=== PATIENT | male | born 1950 | race Caucasian/White ===

== ENCOUNTER 2019-11-04 18:20 | Emergency (ER) | payer MEDICARE, OTHER ==
[~2019-11-04] VITALS: Ht 175.3 cm; Wt 99.9 kg
[2019-11-04 18:28] VITALS: BP 166/108
--- NOTE | 2019-11-04 18:47 | NUR ---
PROJECT [employer]INE[employer]: PT AMBULATORY TO ROOM FROM LOBBY
--- NOTE | 2019-11-04 19:18 | NUR ---
PT TO IMAGING AT THIS TIME. URINE SAMPLE COLLECTED AND SENT.
[2019-11-04 19:21] LABS: BASOPHILS # (AUTO) 0.05 x10^3/uL (0-0.1); BASOPHILS % (AUTO) 1 % (0-1); EOSINOPHILS # (AUTO) 0.17 x10^3/uL (0-0.4); EOSINOPHILS % (AUTO) 2 % (1-7); LYMPHOCYTES # (AUTO) 1.69 x10^3/uL (1-3.4); LYMPHOCYTES % (AUTO) 20 % (22-44); MD NO; MEAN CORPUSCULAR HEMOGLOBIN 30.2 pg (27.5-34.5); MEAN CORPUSCULAR HGB CONC 34.5 g/dL (33.2-36.2); MEAN CORPUSCULAR VOLUME 87.6 fL (81-97); MEAN PLATELET VOLUME 9.9 fL (7.4-10.4); MONOCYTES # (AUTO) 0.65 x10^3/uL (0.2-0.8); MONOCYTES % (AUTO) 8 % (2-9); NEUTROPHILS # (AUTO) 5.75 x10^3/uL (1.8-6.8); NEUTROPHILS % (AUTO) 69 % (42-75); PLATELET COUNT 153 x10^3/uL (130-400); RED BLOOD COUNT 4.49 x10^6/uL (4.38-5.82); RED CELL DISTRIBUTION WIDTH 14.3 % (9.4-14.8)
[2019-11-04 19:31] LABS: INTERNATIONAL NORMALIZED RATIO 2.51 (0.93-1.1); PROTHROMBIN TIME 26.9 Seconds (9.6-11.5)
[2019-11-04 19:32] LABS: ALANINE AMINOTRANSFERASE 35 U/L (12-78); ALBUMIN 3.7 g/dL (3.4-5.0); ANION GAP 6 mmol/L (5-15); CALCIUM 9.3 mg/dL (8.5-10.1); CHLORIDE 103 mmol/L (98-107); CREATININE 1.48 mg/dL (0.7-1.3)
[2019-11-04 19:34] LABS: ALKALINE PHOSPHATASE 52 U/L (45-117); BILIRUBIN,TOTAL 0.8 mg/dL (0.2-1.0); TOTAL PROTEIN 7.3 g/dL (6.4-8.2)
[2019-11-04 19:40] LABS: MICROSCOPIC INDICATED
--- NOTE | 2019-11-04 19:51 | NUR ---
PT RETURNED FROM IMAGING. URINATED IN URINAL, BLADDER SCAN IMMEDIATELY AFTER SHOWS 70ML OF URINE REMAINING. PT DENIES ANY NEEDS OR CONCERNS, CALL LIGHT IN REACH.
== END 2019-11-04 21:17 | disposition home or self-care (01) ==
LOC: ED 20:21
DX: R31.0 Gross hematuria (principal); R05 Cough
CPT/HCPCS: 36415; 74018; 76770; 80053; 81001; 85025; 85610; 87086; 87147; 99285

== ENCOUNTER 2020-11-12 09:48 | Inpatient (IN) | payer MEDICARE ==
[~2020-11-12] VITALS: Ht 177.8 cm; Wt 81.7 kg
[~2020-11-12 09:48] MED LIST: ATOR-2 PO; DIGO125T10 PO; DORZ10DR28 EACHEYE; DOXA8TAB63 PO; EMPA10TA PO; EZET10TA70 PO; HYDR25TA6 PO; INSU100I18 SC; INSU100V8 SQ; LATA7.5D EACHEYE; LISI5TAB7 PO; METO25TA91 PO; OXYB5TAB10 PO; WARF-36 PO
--- NOTE | 2020-11-12 10:09 | NUR ---
BIB EMS FROM HOME PT WAS FOUND OUTSIDE OF HIS HOUSE PER NEIGHBORS "LOOKING CONFUSED". PT WAS FOUND TO BE AOX2 [facility] BY [facility]. PT WAS FOUND TO BE IN A FIB W/ RVR TAKES DIGOXIN, METOPROLOL AND COUMADIN. NO TRAUMA NOTED TO BODY/HEAD. PTS BS 176, HR 110-170, 95% RA. PT RESTING ON GURNEY. REMAINS AOX2 FOR THIS RN. PT BELIEVES IT IS 1969 AND THE PRESIDENT IS "MYERS". IS AWARE HE IS IN [place], [place] AT [facility] "I JUST DON'T FEEL GOOD". MONITORS APPLIED. HR 125-151 IN A FIB HAS HX A FIB. ALL OTHER VSS. WARM BLANKET REFUSED BY PT. CALL LIGHT IN REACH.
--- NOTE | 2020-11-12 10:20 | NUR ---
ERP DR. MARROQUIN AT BEDSIDE FOR EVAL.
[2020-11-12] MEDS ORDERED: DILTIAZEM 5 MG/ML, 5ML ONE (10:25)
[2020-11-12] MEDS ORDERED: DILTIAZEM 5 MG/ML, 5ML IV ONE (10:30)
[2020-11-12] MEDS ORDERED: SODIUM CHLORIDE FLUSH 10ML SYR IVF ONE (10:30)
[2020-11-12] MEDS ORDERED: SODIUM CHLORIDE 0.9% 1,000ML IVBOLUS ONE (10:30)
--- NOTE | 2020-11-12 10:30 | NUR ---
PT AWARE OF NEED FOR UA SAMPLE. URINAL LEFT AT BEDSIDE.
[2020-11-12 10:55] LABS: BASOPHILS % (AUTO) 0 % (0-1); EOSINOPHILS % (AUTO) 0 % (1-7); LYMPHOCYTES % (AUTO) 9 % (22-44); MEAN CORPUSCULAR HEMOGLOBIN 28.3 pg (27.5-34.5); MEAN CORPUSCULAR HGB CONC 33.9 g/dL (33.2-36.2); MEAN PLATELET VOLUME 8.7 fL (7.4-10.4); MONOCYTES % (AUTO) 7 % (2-9); NEUTROPHILS % (AUTO) 83 % (42-75); PLATELET COUNT 183 x10^3/uL (130-400); RED BLOOD COUNT 5.92 x10^6/uL (4.38-5.82); RED CELL DISTRIBUTION WIDTH 17.3 % (9.4-14.8)
[2020-11-12 11:02] LABS: ALANINE AMINOTRANSFERASE 20 U/L (12-78); ALBUMIN 3.7 g/dL (3.4-5.0); ANION GAP 11 mmol/L (5-15); CALCIUM 9.2 mg/dL (8.5-10.1); CHLORIDE 107 mmol/L (98-107); CREATININE 1.39 mg/dL (0.7-1.3)
[2020-11-12 11:06] LABS: INTERNATIONAL NORMALIZED RATIO 1.22 (0.93-1.1); PROTHROMBIN TIME 12.9 Seconds (9.6-11.5)
[2020-11-12 11:07] LABS: ALKALINE PHOSPHATASE 60 U/L (45-117); BILIRUBIN,TOTAL 2.6 mg/dL (0.2-1.0); TOTAL PROTEIN 7.9 g/dL (6.4-8.2); TROPONIN I < 0.015 ng/mL (0.000-0.045)
--- NOTE | 2020-11-12 11:17 | NUR ---
PT RESTING ON GURNEY. NADN. HR REMAINS ELEVATED. ERP DR. MARROQUIN MADE AWARE. AWAITING NEW ORDERS.
[2020-11-12 11:28] LABS: MICROSCOPIC AUTO
[2020-11-12] MEDS ORDERED: DILTIAZEM 5 MG/ML, 5ML IVPush ONE (11:30)
--- NOTE | 2020-11-12 11:31 | NUR ---
PT CHART REVIEWED AND PLACED FOR RECHECK.
--- NOTE | 2020-11-12 11:36 | NUR ---
PT HR 77-84 AT THIS TIME.
[2020-11-12] MEDS ORDERED: CEFTRIAXONE 1,000 MG in DEXTROSE 5% 50 ML IVPB ONE (12:00)
--- NOTE | 2020-11-12 12:32 | NUR ---
PT RESTING ON JUDITH. IVELISSE. JUANS. PT AWARE OF ADMISSION AND IS AGREEABLE.
--- NOTE | 2020-11-12 13:16 | NUR ---
REPORT GIVEN TO NADIR COSTELLO RN. ALL QUESTIONS ANSWERED. AWAITING PT TRANSPORT.
[2020-11-12] MEDS ORDERED: SODIUM CHLORIDE 0.9% 1,000 ML IV SCH (13:30)
[2020-11-12] MEDS ORDERED: ACETAMINOPHEN 325 MG TABLET PO PRN (13:30)
[2020-11-12] MEDS ORDERED: ONDANSETRON 2MG/ML, 2ML IVPush PRN (13:30)
[2020-11-12] MEDS ORDERED: ONDANSETRON ODT 4 MG PO PRN (13:30)
[2020-11-12] MEDS ORDERED: MELATONIN 5 MG TABLET PO PRN (13:30)
[2020-11-12] MEDS ORDERED: ENALAPRILAT 1.25 MG/ML, 2ML IVPush PRN (13:30)
[2020-11-12] MEDS ORDERED: DILTIAZEM 5 MG/ML, 5ML IVPush PRN (13:30)
[2020-11-12 13:33] VITALS: BP 168/72
[2020-11-12] MEDS: OXYBUTYNIN CHLORIDE 5 MG TABLET PO SCH ×2 (17:01→20:58)
[2020-11-12] MEDS ORDERED: WARFARIN 7.5 MG TABLET PO-COUM ONE (18:00)
[2020-11-12 18:53] VITALS: BP 124/66
[2020-11-12] MEDS: ATORVASTATIN 80 MG TABLET PO SCH (20:58)
[2020-11-13 01:35] VITALS: BP 148/88
[2020-11-13 05:06] LABS: BASOPHILS % (AUTO) 1 % (0-1); EOSINOPHILS % (AUTO) 1 % (1-7); LYMPHOCYTES % (AUTO) 16 % (22-44); MEAN CORPUSCULAR HEMOGLOBIN 28.4 pg (27.5-34.5); MEAN CORPUSCULAR HGB CONC 34.3 g/dL (33.2-36.2); MEAN PLATELET VOLUME 8.6 fL (7.4-10.4); MONOCYTES % (AUTO) 11 % (2-9); NEUTROPHILS % (AUTO) 72 % (42-75); PLATELET COUNT 155 x10^3/uL (130-400); RED BLOOD COUNT 5.25 x10^6/uL (4.38-5.82); RED CELL DISTRIBUTION WIDTH 17.6 % (9.4-14.8)
[2020-11-13 05:22] LABS: CHLORIDE 107 mmol/L (98-107)
[2020-11-13 05:27] LABS: CALCIUM 8.9 mg/dL (8.5-10.1); CREATININE 1.39 mg/dL (0.7-1.3)
[2020-11-13 05:29] LABS: ANION GAP 10 mmol/L (5-15)
[2020-11-13] MEDS: METOPROLOL SUCCINATE 25 MG TAB.ER.24H PO SCH (05:57)
[2020-11-13 05:58] VITALS: BP 162/76
[2020-11-13 07:08] VITALS: BP 138/84
[2020-11-13] MEDS ORDERED: DIGOXIN 0.125 MG TABLET PO SCH (09:00)
[2020-11-13] MEDS: DIGOXIN 0.125 MG TABLET PO SCH (09:05)
[2020-11-13] MEDS: DOXAZOSIN 2MG TABLET PO SCH (09:06)
[2020-11-13] MEDS: OXYBUTYNIN CHLORIDE 5 MG TABLET PO SCH ×3 (09:06→20:18)
[2020-11-13] MEDS: EZETIMIBE 10 MG TABLET PO SCH (09:06)
[2020-11-13 10:00] VITALS: BP 129/72
[2020-11-13] MEDS: CEFTRIAXONE 1,000 MG in DEXTROSE 5% 50 ML IVPB SCH (12:45)
[2020-11-13] MEDS: POLYETHYLENE GLYCOL 17 GM PACKET PO SCH (13:52)
[2020-11-13 14:55] VITALS: BP 118/73
[2020-11-13 15:22] LABS: INTERNATIONAL NORMALIZED RATIO 1.3 (0.93-1.1); PROTHROMBIN TIME 13.7 Seconds (9.6-11.5)
[2020-11-13] MEDS ORDERED: WARFARIN 10 MG TABLET PO-COUM ONE (18:00)
[2020-11-13] MEDS ORDERED: WARFARIN 5 MG TABLET PO-COUM ONE (18:24)
[2020-11-13] MEDS: ATORVASTATIN 80 MG TABLET PO SCH (20:18)
[2020-11-13 20:22] VITALS: BP 135/82
[2020-11-14 01:15] VITALS: BP 123/75
[2020-11-14] MEDS: METOPROLOL SUCCINATE 25 MG TAB.ER.24H PO SCH (06:20)
[2020-11-14] MEDS: POLYETHYLENE GLYCOL 17 GM PACKET PO SCH (08:10)
[2020-11-14] MEDS: DOXAZOSIN 2MG TABLET PO SCH (08:11)
[2020-11-14] MEDS: EZETIMIBE 10 MG TABLET PO SCH (08:11)
[2020-11-14] MEDS: DIGOXIN 0.125 MG TABLET PO SCH (08:11)
[2020-11-14] MEDS: OXYBUTYNIN CHLORIDE 5 MG TABLET PO SCH (08:11)
[2020-11-14 09:02] VITALS: BP 114/78
[2020-11-14] MEDS: CEFTRIAXONE 1,000 MG in DEXTROSE 5% 50 ML IVPB SCH (11:05)
== END 2020-11-14 13:24 | disposition home health service (06) | DRG 871 ==
LOC: ED 11:09 → 5SO 12:27 → SUATTDRO 13:09 → 4NW 11-13 09:51
PROVIDERS: ADMIT Family Medicine; ATTEND Hospitalist
DX: A41.9 Sepsis, unspecified organism (principal); G93.41 Metabolic encephalopathy; I48.20 Chronic atrial fibrillation, unspecified; E11.65 Type 2 diabetes mellitus with hyperglycemia; E78.5 Hyperlipidemia, unspecified; I10 Essential (primary) hypertension; I48.0 Paroxysmal atrial fibrillation; N30.90 Cystitis, unspecified without hematuria; Z79.01 Long term (current) use of anticoagulants; Z79.4 Long term (current) use of insulin; Z86.73 Personal history of transient ischemic attack (TIA), and cerebral infarction without residual deficits; Z88.0 Allergy status to penicillin; Z95.2 Presence of prosthetic heart valve
CPT/HCPCS: 36415; 71045; 80048; 80053; 80162; 81001; 83605; 83735; 83880; 84145; 84484; 85025; 85610; 87040; 87086; 93005; G0378; J0696; J7030